=== PATIENT | male | born 1950 ===

== ENCOUNTER 2023-05-16 21:01 | Emergency (ER) | payer MEDICARE, OTHER, SELFPAY ==
[2023-05-16 21:02] VITALS: BP 140/82
--- NOTE | 2023-05-16 21:11 | ED.GENMED ---
History of Present Illness
General
Chief Complaint: Fainting/Passed Out
Time Seen by Provider: 05/16/23 21:11
Travel History
Have you had any contact with someone who has COVID-19?: No
Do you have any symptoms of coronavirus? Fever > 100 degrees, chills, cough, shortness of breath, sore throat, loss of taste or smell, muscle aches, or headache?: No
History of Present Illness
History of Present Illness:
HPI: The patient presents with a syncopal event with head injury. This happened around 8:15 PM this evening. He is on baby aspirin. Just before this occurred, the patient got up from the couch, walked to the sliding glass door to let the dogs
out, then as he turned and shut the door, he felt sweaty and then passed out. His reported loss of consciousness. However currently has no symptoms. He has no significant headache. He never had any chest pain or shortness of breath.
EXAM:
GENERAL: Well appearing in no distress
CERVICAL SPINE: No midline c-spine tenderness with excellent AROM
HEAD: There is a moderate sized hematoma in the left temporal region, there is small ecchymosis/contusion to the left midface with no bony tenderness
CHEST: No chest wall tenderness, normal heart sounds
LUNGS: Equal lung sounds, no respiratory distress
ABDOMEN: No abdominal tenderness, no peritoneal signs
EXTREMITIES: Normal active range of motion, no tenderness
NEURO: Excellent strength all extremities, appropriate mental status, normal speech/language
ED COURSE:
9:15 PM: I initially evaluated patient
NUMBER AND COMPLEXITY OF PROBLEMS ADDRESSED AT THE ENCOUNTER
� Chronic conditions affecting care: High blood pressure, high cholesterol, glaucoma
� Acute Exacerbation and/or Progression of Chronic Illness: This is an acute problem
� Differential Diagnosis includes: Vasovagal syncope, intracranial hemorrhage, minor head injury, anemia, dysrhythmia
AMOUNT AND/OR COMPLEXITY OF DATA TO BE REVIEWED AND ANALYZED
� I performed an independent evaluation of and my interpretation is:
EKG: Sinus 75, left axis deviation, nonspecific ST abnormality
CT: I personally viewed CT imaging and see no sign for intracranial hemorrhage but do see the scalp hematoma
X-rays:
Laboratory Studies: CBC normal, chemistries unremarkable
Other:
� Review of other/old records: Stress echo from 09/21/[address] Tapia was unremarkable
� Clinical information was obtained by an independent historian: None needed
� Prescriptions/Medications Considered but not given:
� Further testing considered but not performed:
RISK OF COMPLICATIONS AND/OR MORBIDITY OR MORTALITY OF PATIENT MANAGEMENT
� Social determinants of health affecting care: Lives at home
� Discussion with other providers:
� Escalation of care including admission/observation vs risk of discharge considered: The patient was very well-appearing upon arrival and has a normal neurologic examination. Given his age with signs of craniofacial trauma,
will obtain CT imaging. EKG is normal. Cardiac monitoring unremarkable. We did give IV fluids in case he was dehydrated. I reassessed patient around 10:45 PM. The patient has developed no new symptoms. On reassessment 11:07 PM, no changes.
Past History
Past History
ED Past Medical History: HTN, Hypercholesterolemia and Other (Glaucoma)
ED Past Surgical History: Other (Polypectomy)
Social History
Tobacco: Former smoker
Alcohol: Occasional
Drug: None
Personal:
Living: with family
Phy Exam
Physical Exam
Physical Exam:
See HPI
Course
Orders/Labs/Results
Orders:
Orders
05/16/23 21:14
CT Head W/o Iv Contrast Urgent
Comment:
Reason For Exam: syncope then head trauma
0.9% Sodium Chloride 1000 ml [Nss] 1,000 ml IV BOLUS
05/16/23 21:15
Electrocardiogram (*1) Urgent
Reason for Study: Syncope
EKG- Treatment ONCE
05/16/23 21:25
Basic Metabolic Panel Urgent
Complete Blood Count/With Diff Urgent
Abnormal Lab Results
05/16/23
21:25
RBC 4.52 L 10^6/uL
(4.70-6.10)
MCH 32.5 H pg
(27.0-31.0)
Absolute Lymphs (auto) 0.6 L 10^3/uL
(1.2-3.4)
Neutrophils % 76.5 H %
(42.2-75.2)
Lymphocytes % 12.2 L %
(20.5-51.1)
Carbon Dioxide 32 H mmol/L
(22-30)
BUN 26 H mg/dl
(9-20)
Glucose 133 H mg/dl
(70-99)
05/16/23 21:25
05/16/23 21:25
Vital Signs
Initial and Last Documented VS:
Initial Vital Signs
Temp Pulse Resp BP Pulse Ox
97.9 F 75 18 140/82 96
05/16/23 21:02 05/16/23 21:02 05/16/23 21:02 05/16/23 21:02 05/16/23 21:02
Last Documented Vital Signs
Temp Pulse Resp BP Pulse Ox
97.9 F 79 18 134/77 94
05/16/23 21:02 05/16/23 21:17 05/16/23 21:17 05/16/23 21:17 05/16/23 21:17
*Critical Care Note
Total Time (30-74mins, 75-104mins- exclusive of procedures): Not Applicable
ED Attending Note
-
Portions of this chart may have been created with voice recognition software.� Occasional wrong word or��sound alike� substitutions may have occurred due to the inherent limitations of voice recognition software.
Discharge Plan
Departure
Patient Disposition: Home (Routine Discharge)
Date of Disposition: 05/16/23
Time of Disposition: 23:04
Patient with high blood pressure during this ER visit?: Yes
Discharge Problem:
Syncope and collapse, Head injury
Instructions: Head Injury in Adults (DC), Syncope (Fainting) (DC)
Prescriptions:
No Action
timolol maleate 1 DROP drops
1 drp ophthalmic (eye) DAILY Qty: 0 0RF
Rx Instructions:
One drop in the eye daily.
latanoprost 1 DROP drops
1 drp ophthalmic (eye) HS Qty: 0 0RF
Rx Instructions:
One drop in the eye at bedtime daily.
lisinopril-hydrochlorothiazide 1 EACH tablet
1 ea PO QPM Qty: 0 0RF
Rx Instructions:
One tab by mouth once daily.
aspirin 325 MG tablet
325 mg PO QPM Qty: 0 0RF
Rx Instructions:
One tab by mouth once daily. Hold for one week.
OK to restart ASA 01/16/2015.
simvastatin 40 MG tablet
40 mg PO QPM Qty: 0 0RF
Rx Instructions:
One tab by mouth every evening.
loratadine 10 MG tablet
10 mg PO QPM Qty: 0 0RF
Rx Instructions:
One tab by mouth every evening.
Referrals:
Morris Dorsey MD [Family Provider] -
Activity Restrictions/Additional Instructions:
Basic blood work is unremarkable. EKG was normal. Brain CT was obtained. Cardiac monitoring was normal. Return here if worse. Follow-up with your primary care doctor.
Interventions
Interventions:
*Risk Screen - Suicide Last Done: 05/16/23 21:02
*General Assessment Last Done: 05/16/23 21:02
*Neglect/Abuse Screening Last Done: 05/16/23 21:02
ED- Fall Risk Assessment Last Done: 05/16/23 21:33
*ED COVID-19 Vaccine History Last Done: 05/16/23 21:07
ED- Cardiac Assessment Last Done: 05/16/23 21:20
ED- Neurological Assessment Last Done: 05/16/23 21:18
[2023-05-16 21:17] VITALS: BP 134/77
[2023-05-16 21:18] VITALS: BMI 29.7
[2023-05-16] MEDS: NSS 1000 IV (21:29)
[2023-05-16 21:35] LABS: % Basophils 0.6 % (0-2); % Eosinophils 2.5 % (0-6); % Immature Granulocytes 0.4 % (0-0.5); % Lymphocytes 12.2 % (20.5-51.1); % Monocytes 7.8 % (1.7-9.3); % Neutrophils 76.5 % (42.2-75.2); Absolute Eosinophils 0.1 10^3/uL (0-0.7); Absolute Lymphocytes 0.6 10^3/uL (1.2-3.4); Absolute Monocytes 0.4 10^3/uL (0.1-0.6); Hematocrit 41.7 % (39.0-52.0); Hemoglobin 14.7 g/dL (13.0-18.0); Mean Corp Hgb Conc. 35.3 g/dL (33.0-37.0); Mean Corpuscular Hgb 32.5 pg (27.0-31.0); Mean Corpuscular Volume 92.3 fL (80.0-94.0); Mean Platelet Volume 9.3 fL (7.4-10.4); Nucleated Red Blood Cells % 0 % (-); Platelet Count 205 10^3/uL (130-400); Red Blood Cell Count 4.52 10^6/uL (4.70-6.10); Red Cell Dist. Width 12.1 % (11.5-14.5); White Blood Cell Count 5.3 10^3/uL (4.8-10.8)
[2023-05-16 21:53] LABS: Blood Urea Nitrogen 26 mg/dl (9-20); Calcium 10.1 mg/dl (8.4-10.2); Carbon Dioxide 32 mmol/L (22-30); Chloride 100 mmol/L (98-107); Estimated Creatinine Clearance 68 ml/min; Glucose 133 mg/dl (70-99); Potassium 4.8 mmol/L (3.5-5.1); Sodium 139 mmol/L (135-145); eGFR > 60.00
[2023-05-16 23:13] VITALS: BP 130/81
== END 2023-05-16 23:24 | disposition home or self-care (01) ==
LOC: EMR 21:01
PROVIDERS: EMERGENCY PHYSICIAN Emergency Medicine; FAMILY PHYSICIAN Internal Medicine Geriatric Medicine
DX: S00.03XA Contusion of scalp, initial encounter (principal); X58.XXXA Exposure to other specified factors, initial encounter; R55 Syncope and collapse; I10 Essential (primary) hypertension; E78.00 Pure hypercholesterolemia, unspecified; H40.9 Unspecified glaucoma; Z79.82 Long term (current) use of aspirin; Z87.891 Personal history of nicotine dependence
CPT/HCPCS: 99285; 96360; 70450; 80048; 85025; 93005

== ENCOUNTER → 2023-05-24 08:29 | Outpatient (REF) | payer MEDICARE, OTHER, SELFPAY | LOC: RCS 08:29 | PROVIDERS: ATTENDING PHYSICIAN Nurse Practitioner Family; FAMILY PHYSICIAN Internal Medicine Geriatric Medicine | DX: R55 Syncope and collapse (principal) | CPT/HCPCS: 93225; 93226 ==

== ENCOUNTER → 2023-06-08 10:12 | Outpatient (REF) | payer MEDICARE, OTHER, SELFPAY | LOC: RCS 10:12 | PROVIDERS: ATTENDING PHYSICIAN Nurse Practitioner Family; FAMILY PHYSICIAN Internal Medicine Geriatric Medicine | DX: R55 Syncope and collapse (principal) | CPT/HCPCS: 93306 ==

== ENCOUNTER → 2024-11-23 09:26 | Outpatient (REF) | payer MEDICARE, OTHER, SELFPAY | LOC: HWRAD 09:26 | PROVIDERS: ATTENDING PHYSICIAN Nurse Practitioner Family; FAMILY PHYSICIAN Internal Medicine Geriatric Medicine | DX: M54.6 Pain in thoracic spine (principal) | CPT/HCPCS: 72072 ==

== ENCOUNTER 2025-02-23 06:24 | Day surgery (SDC) | payer MEDICARE, OTHER, SELFPAY | END 2025-02-23 09:03 | disposition home or self-care (01) | LOC: GI 06:24 | PROVIDERS: ATTENDING PHYSICIAN Internal Medicine Gastroenterology; FAMILY PHYSICIAN Internal Medicine Geriatric Medicine | DX: Z12.11 Encounter for screening for malignant neoplasm of colon (principal); K64.8 Other hemorrhoids; K57.30 Diverticulosis of large intestine without perforation or abscess without bleeding; D12.3 Benign neoplasm of transverse colon; D12.0 Benign neoplasm of cecum; D12.8 Benign neoplasm of rectum; K63.5 Polyp of colon; Z80.0 Family history of malignant neoplasm of digestive organs; Z86.0100 Personal history of colon polyps, unspecified | CPT/HCPCS: 45385; 45380; 88305 ==